=== PATIENT | male | born 2005 | race Hispanic/Latino ===

== ENCOUNTER 2023-10-07 14:11 | Emergency (ER) | payer SELFPAY ==
[2023-10-07] MEDS ORDERED: Lidocaine 1% w/Epinephrine 1:100K 20 ML VIAL ONE (14:23)
[2023-10-07] MEDS ORDERED: Boostrix 0.5 ML (Tdap) VIAL (>/=7 yrs of age) ONE (14:26)
[2023-10-07] MEDS ORDERED: Bacitracin 1 PK ONE (14:52)
== END 2023-10-07 15:06 | disposition home or self-care (01) ==
LOC: ERS 14:11
DX: S81.812A Laceration without foreign body, left lower leg, initial encounter (principal); W26.8XXA Contact with other sharp object(s), not elsewhere classified, initial encounter; Z23 Encounter for immunization
CPT/HCPCS: 12001; 90471; 90715